=== PATIENT | male | born 1955 | race Caucasian/White ===

== ENCOUNTER 2020-08-31 11:31 | Emergency (ER) | payer MEDICARE, OTHER ==
[~2020-08-31] VITALS: Ht 175.3 cm; Wt 88.0 kg
[2020-08-31 12:31] LABS: BASO % 0 % (0-3); EOS % 0 % (0-3); HEMOGLOBIN 16.5 g/dL (13.0-17.5); LYMPH # 0.3 x10^3/uL (1.0-4.8); LYMPH % 4 % (24-48); MEAN CORPUSCULAR HEMOGLOBIN 28 pg (25-35); MEAN CORPUSCULAR HGB CONC 32 g/dL (31-37); MEAN CORPUSCULAR VOLUME 88 fL (79-100); MONO # 0.9 x10^3/uL (0.0-1.1); MONO % 10 % (0-9); NEUT % 85 % (31-73); PLATELET COUNT 237 x10^3/uL (140-400); RED BLOOD COUNT 5.88 x10^6/uL (4.30-5.70); RED CELL DISTRIBUTION WIDTH 20.6 % (11.5-14.5); WHITE BLOOD COUNT 8.3 x10^3/uL (4.0-11.0)
[2020-08-31 12:33] LABS: CREATININE 1.4 mg/dL (0.7-1.3); GFR 51.4; POTASSIUM 4.4 mmol/L (3.5-5.1)
[2020-08-31 12:49] LABS: ALBUMIN 3.5 g/dL (3.4-5.0); ALBUMIN/GLOBULIN RATIO 1.1 (1.0-1.7); TOTAL BILIRUBIN 4.6 mg/dL (0.2-1.0); TOTAL PROTEIN 6.6 g/dL (6.4-8.2)
--- NOTE | 2020-08-31 12:49 | PHYS DOC ---
Past History Past Medical History: A-Fib, GERD, High Cholesterol, Hypertension, Hypothyroid (VAHID FERNANDEZ APRN) Past Surgical History: Coronary Bypass Surgery, Pacemaker Additional Past Surgical Histo: Hiatal hernia repair. (VAHID FERNANDEZ APRN) Alcohol Use: None (VAHID FERNANDEZ APRN) General Adult EDM: Chief Complaint: SHORTNESS OF BREATH HPI: HPI: Patient is a 64-year-old male presents with dizziness, weakness, short of breat h. Patient [facility] in [facility] Patient son brought him in and he has been staying with his son. Son states patient has not taken his medications for 2 weeks. Patient denies chest pain. Patient states "I feel like my pacemaker is firing". Patient has 3+ pitting edema on bilateral legs. Patient's left arm is cool to the touch, red. Denies fever, cough. Patient has history of hypertension, CHF, GERD, hyperlipidemia, A. fib. (VAHID FERNANDEZ APRN) Review of Systems: Review of Systems: Constitutional: Denies fever or chills Eyes: Denies change in visual acuity HENT: Denies nasal congestion or sore throat Respiratory: Denies cough, reports shortness of breath Cardiovascular: Denies chest pain, reports pitting edema in bilateral legs GI: Denies abdominal pain, nausea, vomiting, bloody stools or diarrhea : Denies dysuria Musculoskeletal: Denies back pain or joint pain Integument: Denies rash Neurologic: Denies headache, focal weakness or sensory changes Endocrine: Denies polyuria or polydipsia Lymphatic: Denies swollen glands Psychiatric: Denies depression or anxiety (VAHID FERNANDEZ APRN) Allergies: Allergies: Allergies Coded Allergies Type Severity Reaction Last Updated Verified No Known Drug Allergies 08/31/20 No (VAHID FERNANDEZ APRN) Physical Exam: PE: Constitutional: Well developed, well nourished, no acute distress HENT: Normocephalic, atraumatic, bilateral external ears normal, oropharynx moist, no oral exudates, nose normal. [] Eyes: PERRLA, EOMI, conjunctiva normal, no discharge. [] Neck: Normal range of motion, no tenderness, supple, no stridor. [] Cardiovascular:Heart rate regular rhythm, no murmur [] Lungs & Thorax: Bilateral breath sounds clear to auscultation [] Abdomen: Bowel sounds normal, soft, no tenderness, no masses, no pulsatile masses. [] Skin: Warm, dry, no erythema, no rash. [] Back: No tenderness, no CVA tenderness. [] Extremities: Bilateral leg tenderness, 3+ pitting edema in bilateral legs. Left arm is cool to the touch and red. Cap refill is 2 to 3 seconds. Neurologic: Alert and oriented X 3, normal motor function, normal sensory fun ction, no focal deficits noted. [] Psychologic: Affect normal, judgement normal, mood normal. [] (VAHID FERNANDEZ APRN) Current Patient Data: Labs: Laboratory Tests Test 08/31/20 12:05 White Blood Count 8.3 x10^3/uL (4.0-11.0) Red Blood Count 5.88 x10^6/uL (4.30-5.70) H Hemoglobin 16.5 g/dL (13.0-17.5) Hematocrit 52.0 % (39.0-53.0) Mean Corpuscular Volume 88 fL (79-100) Mean Corpuscular Hemoglobin 28 pg (25-35) Mean Corpuscular Hemoglobin Concent 32 g/dL (31-37) Red Cell Distribution Width 20.6 % (11.5-14.5) H Platelet Count 237 x10^3/uL (140-400) Neutrophils (%) (Auto) 85 % (31-73) H Lymphocytes (%) (Auto) 4 % (24-48) L Monocytes (%) (Auto) 10 % (0-9) H Eosinophils (%) (Auto) 0 % (0-3) Basophils (%) (Auto) 0 % (0-3) Neutrophils # (Auto) 7.0 x10^3uL (1.8-7.7) Lymphocytes # (Auto) 0.3 x10^3/uL (1.0-4.8) L Monocytes # (Auto) 0.9 x10^3/uL (0.0-1.1) Eosinophils # (Auto) 0.0 x10^3/uL (0.0-0.7) Basophils # (Auto) 0.0 x10^3/uL (0.0-0.2) Vital Signs: Vital Signs Date Time Temp Pulse Resp B/P (MAP) Pulse Ox O2 Delivery O2 Flow Rate FiO2 08/31/20 11:40 96.2 70 36 137/99 (112) 88 Room Air (VAHID FERNANDEZ KEERTHI) EKG: EKG: [] (JIMVAHID KEERTHI) Radiology/Procedures: Radiology/Procedures: []EXAM: CT angiography of the chest, abdomen and pelvis with intravenous contrast. HISTORY: Short of breath. Elevated bilirubin. TECHNIQUE: Computed tomographic images of the chest, abdomen and pelvis were obtained following the administration of intravenous contrast according to angiography protocol. Multiplanar reformatting was performed and three dimensional maximum intensity projection images were obtained. *One or more of the following individualized dose reduction techniques were utilized for this examination: 1. Automated exposure control. 2. Adjustment of the mA and/or kV according to patient size. 3. Use of iterative reconstruction technique. COMPARISON: None. FINDINGS: Chest: There are left lower lobe, lingular and right middle lobe pulmonary emboli. There may also be distal right lower lobe pulmonary emboli, difficult to confirm given respiratory motion in this location. There are moderate bilateral pleural effusions. There is associated fluid tracking within the pleural fissures. There is partial left lower lobe consolidation with surrounding groundglass infiltrate. There is right basilar interstitial infiltrate. There is partially consolidated lingular and medial right middle lobe infiltrate with superimposed pleural parenchymal scarring. There is cardiomegaly. There is evidence of prior CABG. There is a cardiac pacemaker. There are prominent mediastinal and hilar lymph nodes. There is no evidence of right heart strain. There is emphysema. There is body wall edema. There is a small hiatal hernia. There are degenerative changes throughout the spine. Abdomen and pelvis: No hepatic lesion is seen. The gallbladder is absent. The pancreas and spleen are unremarkable. There is a 2.4 cm left adrenal nodule. There is also slight nodular thickening of the bryant of the left adrenal gland, without a discrete nodule. There is bilateral renal cortical thinning and lobulation due to scarring. There is a simple left renal cysts. There is moderate abdominal ascites. There is a 2.4 cm left adrenal nodule. There is also nodular thickening of the bryant of the left adrenal gland. There is a small to moderate abdominal ascites. There is diffuse colonic wall thickening. This can be seen in the setting of ascites. There is diffuse mesenteric stranding. There is no bowel obstruction. There is no lymphadenopathy. The abdominal aorta is normal in caliber. There is partially calcified atherosclerotic plaque within the aorta and main aortic branch vessels. No hemodynamically significant stenosis is seen. There is no aneurysm or dissection. There is mild bladder wall thickening. The prostate is mildly enlarged. There is body wall edema. There are degenerative changes throughout the spine. There is no acute osseous finding. IMPRESSION: 1. Left lower lobe, lingular, right middle lobe and possibly right lower lobe pulmonary emboli. No saddle embolus is seen. 2. Multifocal consolidated infiltrate primarily involving the left lower lobe, medial right middle lobe and lingula. The superimposed on diffuse interstitial infiltrate. Follow-up to confirm resolution. 3. Moderate pleural effusions. 4. Small moderate ascites. 5. Emphysema. 6. Colonic wall thickening. This can be seen in the presence of ascites. Correlate with symptomatology to exclude colitis. 7. Mild prostatomegaly. 8. 2.4 cm left adrenal nodule. This can be better assessed with adrenal protocol CT or MRI. 9. Simple appearing left renal cyst. Follow-up is not routinely performed for simple cysts. 10. Cardiomegaly. 11. Prominent mediastinal and hilar lymph nodes, likely reactive in etiology. Findings were discussed with Hayde in the ED at 1400 hours on 09/01/2019. Electronically signed by: Rhona Gaona MD (08/31/2020 2:28 PM) [id number] US DPLX VENOUS EXTREMITY UPPER LT History: Reason: cap refil 2-3 sec, cold / Spl. Instructions: / History: Swel pedro Comparison: None. Procedure: Color flow Doppler, Doppler spectral analysis, and 2D images are obtained with and without compression in the jugular vein, subclavian vein, axillary vein, brachial vein, radial vein, ulnar vein, and basilic and cephalic veins. Findings: Degraded evaluation due to difficult mobility. The subcutaneous edema. Patent left internal jugular, subclavian, axilla, brachial, ulnar and radial veins. Patent basilic and cephalic veins. No definite thrombus. IMPRESSION: 1. No evidence of left upper extremity deep venous thrombosis. Electronically signed by: Raad Yoon DO (08/31/2020 1:37 PM) [facility] EXAM: Chest, single view. HISTORY: Shortness of breath. COMPARISON: None. FINDINGS: A frontal view of the chest is obtained. There are small bilateral pleural effusions. There is diffuse interstitial infiltrate. There is an enlarged cardiac silhouette. There is no pneumothorax. There are findings consistent with CABG. There is a cardiac pacemaker defibrillator in expected position. IMPRESSION: 1. Diffuse interstitial infiltrate with small pleural effusions. 2. Prominent cardiac silhouette and postoperative mediastinal changes. Electronically signed by: Rhona Gaona MD (08/31/2020 1:12 PM) [id number] (VAHID FERNANDEZ APRN) Heart Score: C/O Chest Pain: No Risk Factors: Risk Factors: DM, Current or recent (<one month) smoker, HTN, HLP, family history of CAD, obesity. Risk Scores: Score 0 - 3: 2.5% MACE over next 6 weeks - Discharge Home Score 4 - 6: 20.3% MACE over next 6 weeks - Admit for Clinical Observation Score 7 - 10: 72.7% MACE over next 6 weeks - Early Invasive Strategies (VAHID FERNANDEZ APRN) Course & Med Decision Making: Course & Med Decision Making Pertinent Labs and Imaging studies reviewed. (See chart for details) [] 64-year-old male who presents with dizziness and shortness of breath. Patient was brought in by his son who he is staying with at this time. [facility]. Patient has shortness of breath. 3+ pitting edema. Patient does not appear to be taking any diuretics. Son states patient has not taken any of his meds for the last 2 weeks. Patient is currently in controlled, A. fib, patient does have a history of A. fib. Defibrillator was integrated which showed A. fib. Patient paced 5% of the time, no VT/V.fib, no shocks seen from [facility] [employer]. Patient is taking 81 mg of aspirin a day. D-dimer ordered to rule out possible PE due to shortness of breath. Ultrasound of left arm ordered to rule out DVT. Creatinine is 1.4. 80 of Lasix ordered due to 3+ pitting edema, shortness of breath. D-dimer is elevated at 4.38, CTA ordered rule out PE. [place] [address], bili is elevated at 4.6. PT 19.4, INR 1.9, APTT 34. Chest x-ray is positive for pneumonia, CTA shows bilateral PEs. Lovenox given. Ultrasound of left arm is negative for DVT. Patient started on Rocephin and azithromycin for pneumonia. Spoke with Dr. Sawyer for admission. Dr. Sawyer recommended patient be admitted to [facility] for ICU bed. Discussed case with Dr. Otoole, who will be accepting patient at [facility]. (VAHID FERNANDEZ APRN) Sarah Disclaimer: Sarah Disclaimer: This electronic medical record was generated, in whole or in part, using a voice recognition dictation system. (VAHID FERNANDEZ APRN) Attending Co-Sign The patient was seen and interviewed as well as examined at the bedside. The chart was reviewed. The case was discussed. Agree with the plan of care. (ALEXANDER RAMIREZ DO) Departure Departure: Impression: Primary Impression: Pulmonary embolism Qualified Codes: I26.99 - Other pulmonary embolism without acute cor pulmonale Disposition: ADMITTED INPATIENT Condition: STABLE Referrals: MICHAEL GARCIA MD (PCP) VAHID FERNANDEZ APRN August 31, 2020 12:49 ALEXANDER RAMIREZ DO September 01, 2020 06:13
[2020-08-31 12:57] LABS: PLT ESTIMATE ADEQUATE (ADEQUATE)
[2020-08-31 12:58] LABS: ANISOCYTOSIS SLIGHT
--- NOTE | 2020-08-31 13:14 | RAD ---
EXAM: Chest, single view. HISTORY: Shortness of breath. COMPARISON: None. FINDINGS: A frontal view of the chest is obtained. There are small bilateral pleural effusions. There is diffuse interstitial infiltrate. There is an enlarged cardiac silhouette. There is no pneumothora x. There are findings consistent with CABG. There is a cardiac pacemaker defibrillator in expected po sition. IMPRESSION: 1. Diffuse interstitial infiltrate with small pleural effusions. 2. Prominent cardiac silhouette and postoperative mediastinal changes. Electronically signed by: Rhona Gaona MD (08/31/2020 1:12 PM) [id number]
--- NOTE | 2020-08-31 13:17 | EKG ---
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
[2020-08-31] MEDS ORDERED: IOHEXOL 350 MG/ML 100 ML VIAL. IV ONE (13:30)
[2020-08-31] MEDS ORDERED: FUROSEMIDE 40 MG/4 ML VIAL IVP ONE (13:30)
--- NOTE | 2020-08-31 13:39 | RAD ---
US DPLX VENOUS EXTREMITY UPPER LT History: Reason: cap refil 2-3 sec, cold / Spl. Instructions: / History: Swelling Comparison: None. Procedure: Color flow Doppler, Doppler spectral analysis, and 2D images are obtained with and without compression in the jugular vein, subclavian vein, axillary vein, brachial vein, radial vein, ulnar v ein, and basilic and cephalic veins. Findings: Degraded evaluation due to difficult mobility. The subcutaneous edema. Patent left internal jugular, subclavian, axilla, brachial, ulnar and radial veins. Patent basilic and cephalic veins. No definite thrombus. IMPRESSION: 1. No evidence of left upper extremity deep venous thrombosis. Electronically signed by: Raad Yoon DO (08/31/2020 1:37 PM) [facility]
--- NOTE | 2020-08-31 14:30 | RAD ---
EXAM: CT angiography of the chest, abdomen and pelvis with intravenous contrast. HISTORY: Short of breath. Elevated bilirubin. TECHNIQUE: Computed tomographic images of the chest, abdomen and pelvis were obtained following the a dministration of intravenous contrast according to angiography protocol. Multiplanar reformatting was performed and three dimensional maximum intensity projection images were obtained. *One or more of the following individualized dose reduction techniques were utilized for this examina tion: 1. Automated exposure control. 2. Adjustment of the mA and/or kV according to patient size. 3. Use of iterative reconstruction technique. COMPARISON: None. FINDINGS: Chest: There are left lower lobe, lingular and right middle lobe pulmonary emboli. There ma y also be distal right lower lobe pulmonary emboli, difficult to confirm given respiratory motion in this location. There are moderate bilateral pleural effusions. There is associated fluid tracking wit hin the pleural fissures. There is partial left lower lobe consolidation with surrounding groundglass infiltrate. There is right basilar interstitial infiltrate. There is partially consolidated lingular and medial right middle lobe infiltrate with superimposed pleural parenchymal scarring. There is cardiomegaly. There is evidence of prior CABG. There is a cardiac pacemaker. There are promi nent mediastinal and hilar lymph nodes. There is no evidence of right heart strain. There is emphysem a. There is body wall edema. There is a small hiatal hernia. There are degenerative changes throughou t the spine. Abdomen and pelvis: No hepatic lesion is seen. The gallbladder is absent. The pancreas and spleen are unremarkable. There is a 2.4 cm left adrenal nodule. There is also slight nodular thickening of the bryant of the left adrenal gland, without a discrete nodule. There is bilateral renal cortical thinning and lobulation due to scarring. There is a simple left renal cysts. There is moderate abdominal ascites. There is a 2.4 cm left adrenal nodule. There is also nodular thi ckening of the bryant of the left adrenal gland. There is a small to moderate abdominal ascites. There is diffuse colonic wall thickening. This can be seen in the setting of ascites. There is diffuse mese nteric stranding. There is no bowel obstruction. There is no lymphadenopathy. The abdominal aorta is normal in caliber. There is partially calcified atherosclerotic plaque within the aorta and main aortic branch vessels. No hemodynamically significant stenosis is seen. There is n o aneurysm or dissection. There is mild bladder wall thickening. The prostate is mildly enlarged. There is body wall edema. The re are degenerative changes throughout the spine. There is no acute osseous finding. IMPRESSION: 1. Left lower lobe, lingular, right middle lobe and possibly right lower lobe pulmonary emboli. No sa ddle embolus is seen. 2. Multifocal consolidated infiltrate primarily involving the left lower lobe, medial right middle lo be and lingula. The superimposed on diffuse interstitial infiltrate. Follow-up to confirm resolution. 3. Moderate pleural effusions. 4. Small moderate ascites. 5. Emphysema. 6. Colonic wall thickening. This can be seen in the presence of ascites. Correlate with symptomatolog y to exclude colitis. 7. Mild prostatomegaly. 8. 2.4 cm left adrenal nodule. This can be better assessed with adrenal protocol CT or MRI. 9. Simple appearing left renal cyst. Follow-up is not routinely performed for simple cysts. 10. Cardiomegaly. 11. Prominent mediastinal and hilar lymph nodes, likely reactive in etiology. Findings were discussed with Hayde in the ED at 1400 hours on 09/01/2019. Electronically signed by: Rhona Gaona MD (08/31/2020 2:28 PM) [id number]
[2020-08-31 15:11] LABS: BILIRUBIN,URINE LARGE (NEG); CLARITY,URINE TURBID; COLOR,URINE AMBER; GLUCOSE,URINE NEG (NEG)
[2020-08-31 15:12] LABS: BACTERIA,URINE 0 /HPF (0-FEW); NITRITE,URINE POS (NEG); RBC,URINE RARE /HPF (0-2); UROBILINOGEN,URINE >=8.0 mg/dL (0.2 mg/dL)
[2020-08-31 15:13] LABS: HYALINE CASTS, URINE MOD /HPF; SQUAMOUS EPITHELIAL CELL,UR OCC /LPF
[2020-08-31] MEDS ORDERED: AZITHROMYCIN 500 MG in IV NORMAL SALINE 250ML 250 ML IV ONE (15:15)
[2020-08-31 15:18] LABS: AMORPHOUS SEDIMENT,UR PRESENT /HPF
[2020-08-31] MEDS ORDERED: IV NORMAL SALINE 100ML 100 ML ONE (15:30)
[2020-08-31] MEDS ORDERED: AZITHROMYCIN 500 MG VIAL. IV ONE (15:31)
[2020-08-31] MEDS ORDERED: IV NORMAL SALINE 250ML 250 ML ONE (15:31)
[2020-08-31] MEDS ORDERED: ONDANSETRON PF 4 MG/2 ML VIAL. ONE (16:28)
[2020-08-31] MEDS ORDERED: ONDANSETRON PF 4 MG/2 ML VIAL. IVP ONE (16:30)
[2020-08-31] MEDS ORDERED: ENOXAPARIN ** NOTE DOSE ** SYRINGE SQ ONE (16:30)
[2020-08-31 17:45] VITALS: BP 109/71
== END 2020-08-31 18:11 | disposition admitted as inpatient to this hospital (09) ==
LOC: ER 11:31
DX: I26.99 Other pulmonary embolism without acute cor pulmonale (principal); R42 Dizziness and giddiness; K21.9 Gastro-esophageal reflux disease without esophagitis; E78.5 Hyperlipidemia, unspecified; I10 Essential (primary) hypertension; Z95.0 Presence of cardiac pacemaker
CPT/HCPCS: 36415; 71045; 71275; 74177; 80053; 81001; 82248; 82553; 83690; 83735; 83880; 84484; 85025; 85379; 85610; 85730; 87086; 93005; 93971; 96365; 96367; 96375; 99285; J0456; J0696; J1650; J1940; J2405; J7050; Q9967